=== PATIENT | male | born 1970 | race Caucasian/White ===

== ENCOUNTER → 2019-10-29 | Outpatient (CLI) | payer BC ==
[~2019-10-29] MED LIST: AIRBORNE TABLE1 EACH PO; ASPIR 8181 MG PO; BYSTOLIC 5 MG5 MG; COENZYME Q-1050 MG PO; DAILY FIBER0.52 GM PO; EDARBYCLOR 40-1 EAC1 PO; KRILL OIL; LIPITOR10 MG PO; LISINOPRIL20 MG PO; METOPROLOL SUCC50 MG PO; MULTIVITAMIN; PLAVIX 75 MG TA75 M1 PO; VITAMIN D3400 UNIT PO
== END ==
LOC: SJCVCIMAG 13:10
DX: I25.10 Atherosclerotic heart disease of native coronary artery without angina pectoris (principal); R93.1 Abnormal findings on diagnostic imaging of heart and coronary circulation; I10 Essential (primary) hypertension; I25.2 Old myocardial infarction; Z95.5 Presence of coronary angioplasty implant and graft; Z87.891 Personal history of nicotine dependence

== ENCOUNTER → 2019-11-05 | Outpatient (CLI) | payer BC, OTHER ==
[~2019-11-05] VITALS: Ht 170.2 cm; Wt 105.7 kg
[2019-11-05 07:25] VITALS: BP 122/69
--- NOTE | 2019-11-05 08:17 | EKG ---
[facility] [place] [address] ELECTROCARDIOGRAM REPORT Name: ANDRE RAMIREZ [id number] Admission: 11/05/19 Attend Phys: Karlos Diallo MD, Discharge: Date of : 68 Report #: [id number] THIS REPORT FOR: cc: FAM - Family physician unknown FAM - Family physician unknown Ray Butler MD ~ THIS REPORT FOR: //name// [facility] Test Date: 2019-11-05 Test Time: 07:28:07 Pat Name: ANDRE RAMIREZ Department: Room: Gender: Management Liaison: Zhen PASTRANA : 1970 Requested By: Karlos Diallo Order Number: [id number] MD: Ray Butler Measurements Intervals [place] Rate: 62 P: 18 HI: 192 QRS: 80 QRSD: 113 T: -5 QT: 424 QTc: 431 Interpretive Statements Sinus rhythm Inferior infarct, old Minimal ST elevation, anterior leads Compared to ECG 12/18/2014 07:36:19 ST (T wave) deviation now present Myocardial infarct finding still present Electronically Signed On 11-05-2019 8:16:29 CDT by Ray Butler [email or web address] <ELECTRONICALLY SIGNED> By: Ray Butler MD 11/05/19 0816 7 7 Ray Butler MD /EPI
--- NOTE | 2019-11-05 09:27 | CATHLAB ---
[facility] [place] [address] INVASIVE PROCEDURE REPORT Name: ANDRE RAMIREZ Room #: REG [facility] Brigitte.#: [id number] Admission: 11/05/19 Attend Phys: Karlos Diallo MD, Discharge: Date of : 68 Report #: [id number] THIS REPORT FOR: cc: FAM - Family physician unknown FAM - Family physician unknown Karlos Diallo MD [facility] ~ APPROVED REPORT Study performed: 11/05/2019 07:44:08 Patient Details Patient Status: Out-Patient Room #: The patient is a 49 year-old male Event Personnel Karlos Diallo Batting Machine Operator Insulation, Nydia Jiménez RN RN, Kymberly Howard RTRajat Silver David Monitor Procedures Performed Left Heart Cath w/or w/o Coronaries [id number] [facility] Indication Chest pain Procedure Narrative The patient was brought electively to the Cardiac Catheterization Laboratory and was prepped and draped in a sterile manner. The Right Groin^ was infiltrated with 1% Lidocaine subcutaneous anesthesia. A PINNACLE 6FR Sheath #[id number] sheath was inserted into the RFA^. Coronary angiography was performed using coronary diagnostic catheters. The right coronary system was accessed and visualized with a JR4 catheter. The left coronary system was accessed and visualized with a JL4 catheter. The left ventricle was accessed and visualized with a PIGTAIL catheter. Left ventricular/Aortic Valve gradient assessed via catheter pullback. Left ventriculogram was performed in 30 degree projection. Closure device was deployed with a 6 Fr MYNXGRIP 6/7F #[id number]. The patient tolerated the procedure well and there were no complications associated with the procedure. There was no hematoma. Intraoperative Conscious Sedation Sedation start time: 7.56 Case end Time: 8.30 Fentanyl 50 mcg Versed 1 mg [facility] [address] [place] [address] INVASIVE PROCEDURE REPORT Name: JAMESANDRE [place] Room #: REG [facility] [id number] Admission: 11/05/19 Attend Phys: Karlos Diallo, Discharge: Date of : 68 Report #: [id number] Fluoro Time: 2.70 minutes Dose: DAP 7662.00 cGycm2 995 mGy Contrast Type and Amount: Omnipaque 110 ml Coronary Angiography The patient's coronary anatomy is right dominant. Diagnostic Cath Left Main Normal left main LAD Normal left anterior descending Circumflex Large, nondominant circumflex comprised of two marginal branches OM1 Normal first marginal branch OM2 Small, angiographically normal second marginal branch Right Coronary Occluded proximal right coronary with extensive vhbo-df-psych collateralization. Faint antegrade filling of the distal right coronary Left Ventriculography The left ventricle is normal in size with abnormal contractility. The left ventricular ejection fraction is estimated to be 50%. Left ventricular wall motion abnormalities are present. There is no mitral insufficiency. Hypokinesis involving the inferior wall. Hemodynamics The aortic pressure is 151/59 mmHg with a mean of 70 mmHg. The left ventricular pressure is 121/9 mmHg with a mean of mmHg. The left ventricular end diastolic pressure is 18 mmHg. There was no gradient across the aortic valve upon pullback. Pullback from the left ventricle to the aorta revealed no gradient across the aortic valve. Conclusion 1. Mild left ventricular dysfunction with hypokinesis involving the inferior wall. Ejection fraction 50%. 2. Normal left main 3. Normal LAD and circumflex 4. Chronically occluded right coronary with extensive vozf-jz-edomx collateralization. [facility] [address] [place] [address] INVASIVE PROCEDURE REPORT Name: ANDRE RAMIREZ [place] Room #: REG CL [facility]#: [id number] Admission: 11/05/19 Attend Phys: Karlos Diallo, Discharge: Date of : 68 Report #: [id number] Recommendations Aggressive Medical Therapy <ELECTRONICALLY SIGNED> By: Karlos Diallo MD, FACC 11/05/19925 5 5 Karlos Diallo MD, FACC /INF
== END | disposition home or self-care (01) ==
LOC: CATH 06:37
DX: R07.9 Chest pain, unspecified (principal); I25.10 Atherosclerotic heart disease of native coronary artery without angina pectoris; I11.0 Hypertensive heart disease with heart failure; I50.1 Left ventricular failure, unspecified; E78.5 Hyperlipidemia, unspecified; I25.2 Old myocardial infarction; Z86.73 Personal history of transient ischemic attack (TIA), and cerebral infarction without residual deficits; Z87.891 Personal history of nicotine dependence; Z98.890 Other specified postprocedural states; Z90.49 Acquired absence of other specified parts of digestive tract